=== PATIENT | female | born 1975 | race Caucasian/White ===

== ENCOUNTER 2016-04-12 15:04 | Emergency (ER) | payer OTHER ==
--- NOTE | 2016-04-12 18:20 | DIAGNOSTIC IMAGING REPORT ---
PROCEDURE: CT ABD/PELVIS WITH CONTRAST INDICATION: Left abdominal pain. History of uterine and cervical carcinoma. Hysterectomy. TECHNIQUE: 90 ml of Isovue 300 were injected intravenously and axial images were obtained of the entire abdomen and pelvis with sagittal and coronal reformations. COMPARISON: None. FINDINGS: ABDOMEN: Gallbladder, liver, spleen, pancreas, kidneys, and aorta are normal. Bowel pattern is normal. Appendix is not clearly identified, but no evidence of inflammatory process of. including appendix. PELVIS: Status post hysterectomy. Ovaries are not identified (oophorectomy versus atrophy). No evidence of mass or adenopathy. No evidence of free fluid. IMPRESSION: 1. Status post hysterectomy. 2. Otherwise negative CT abdomen pelvis. 3. Findings discussed with CARLIN Dias. All CT scans at this facility use dose modulation, iterative reconstruction, and/or weight-based dosing when appropriate to reduce radiation dose to as low as reasonably achievable.
--- NOTE | 2016-04-12 18:23 | ED ORDER SUMMARY ---
..... Patient: PILI MAYBERRY OrderSheet [facility] VisitID: [id number] [address] [place] [address] 40y, F Registration Date/Time: 04/12/2016 ORDER SHEET Weight: 56.2 kg (stated) Allergies: Penicillin GENERAL ORDERS: CT Abd/Pel w Cont (No) (pending) Urgent (15:57 04/12/2016 HBivens A.R.N.P.) (Ack 15:59 LMuller) (16:51 LWhalen R.N.) CBC w Diff Urgent (15:57 04/12/2016 HBivens A.R.N.P.) (Ack 15:59 LMuller) (16:51 LWhalen R.N.) CMP Urgent (15:57 04/12/2016 HBivens A.R.N.P.) (Ack 15:59 LMuller) (16:51 LWhalen R.N.) UA-Culture if indicated Urgent (15:57 04/12/2016 HBivens A.R.N.P.) (Ack 15:59 LMuller) (16:51 LWhalen R.N.) Amylase Urgent (15:57 04/12/2016 HBivens A.R.N.P.) (Ack 15:59 LMuller) (16:51 LWhalen R.N.) Lipase Urgent (15:57 04/12/2016 HBivens A.R.N.P.) (Ack 15:59 LMuller) (16:51 LWhalen R.N.) Wet Prep (Vaginal) (vagina) Urgent (15:58 04/12/2016 HBivens A.R.N.P.) (Ack 16:00 LMuller) (16:51 LWhalen R.N.) MEDICATION ORDERS: IV FLUIDS: IV Saline Lock (15:57 04/12/2016 HBivens A.R.N.P.) (16:51 LWhalen R.N.) Toradol IV 30 mg (NOW) (18:03 04/12/2016 HBivens A.R.N.P.) (18:05 LWhalen R.N.) ORDER SHEET NOTES: [Electronically signed by Rupesh Sow R.N. (19:00 04/12/2016)] [Electronically signed by Andria Sanchez (19:15 04/12/2016)] [Electronically locked/signed by Rupesh Sow R.N. (19:00 04/12/2016)]
--- NOTE | 2016-04-12 18:23 | ED ORDER SUMMARY ---
..... Patient: PILI MAYBERRY OrderSheet [facility] VisitID: [id number] [address] [place] [address] 40y, F Registration Date/Time: 04/12/2016 ORDER SHEET Weight: 56.2 kg (stated) Allergies: Penicillin GENERAL ORDERS: CT Abd/Pel w Cont (No) (pending) Urgent (15:57 04/12/2016 HBivens A.R.N.P.) (Ack 15:59 LMuller) (16:51 LWhalen R.N.) CBC w Diff Urgent (15:57 04/12/2016 HBivens A.R.N.P.) (Ack 15:59 LMuller) (16:51 LWhalen R.N.) CMP Urgent (15:57 04/12/2016 HBivens A.R.N.P.) (Ack 15:59 LMuller) (16:51 LWhalen R.N.) UA-Culture if indicated Urgent (15:57 04/12/2016 HBivens A.R.N.P.) (Ack 15:59 LMuller) (16:51 LWhalen R.N.) Amylase Urgent (15:57 04/12/2016 HBivens A.R.N.P.) (Ack 15:59 LMuller) (16:51 LWhalen R.N.) Lipase Urgent (15:57 04/12/2016 HBivens A.R.N.P.) (Ack 15:59 LMuller) (16:51 LWhalen R.N.) Wet Prep (Vaginal) (vagina) Urgent (15:58 04/12/2016 HBivens A.R.N.P.) (Ack 16:00 LMuller) (16:51 LWhalen R.N.) MEDICATION ORDERS: IV FLUIDS: IV Saline Lock (15:57 04/12/2016 HBivens A.R.N.P.) (16:51 LWhalen R.N.) Toradol IV 30 mg (NOW) (18:03 04/12/2016 HBivens A.R.N.P.) (18:05 LWhalen R.N.) ORDER SHEET NOTES: [Electronically signed by Rupesh Sow R.N. (19:00 04/12/2016)] [Electronically signed by Andria Sanchez (19:15 04/12/2016)] [Electronically locked/signed by Rupesh Sow R.N. (19:00 04/12/2016)]
--- NOTE | 2016-04-12 18:23 | ED CLINICAL REPORT ---
Clinical Report - Physicians/Mid Levels [facility] [address] [place] [address] 04/12/2016 15:06 Patient: PILI MAYBERRY Time Seen: 15:12; upon arrival, initial patient contact, initial documentation, patient care assumed. Arrived- By private vehicle. Historian- patient. HISTORY OF PRESENT ILLNESS Chief Complaint: PELVIC PAIN. At its maximum, severity described as severe. When seen in the E.D., severity described as mild. Modifying factors. Not worsened by anything. Not relieved by anything. It is described as "pain". No radiation. It is described as located in the right pelvis and left pelvis and in the pelvic area. This started years ago and is still present. It was abrupt in onset and has been intermittent. No nausea, loss of appetite, vomiting or diarrhea. No additional abdominal pain. (comes on random, last different durations and then goes away, started a few years ago, got worse over this past year and worse over the last week, has not been back to dr since her hysterectomy from uterine and cervical ca). No recent travel. Similar symptoms previously: None. Recent medical care: Not recently seen/assessed. REVIEW OF SYSTEMS No constipation, black stools, hematemesis, difficulty with urination or pain with urination. No urinary frequency, abnormal bleeding, bloody stools, fever or chest pain. No difficulty breathing. Denies current . All systems otherwise negative, except as recorded above. PAST HISTORY See nurses notes. PROBLEMS: Abdominal Pain. Cancer. Fibromyalgia. LNMP - Last Normal Menstrual Period. --15:27 Rupesh Sow R.N. ADDITIONAL SURGERIES: Hysterectomy. --15:27 Rupesh Sow R.N. SOCIAL HISTORY Light tobacco smoker. Regular alcohol use; consumes beer. History of occasional drug use: marijuana. No recent travel. Is a local resident. FAMILY HISTORY Negative. ADDITIONAL NOTES The nursing notes have been reviewed with agreement regarding the chief complaint, HPI, ROS, PMH and patient medications and allergies. PHYSICAL EXAM Vital Signs: 04/12/2016 15:24 BP: 131/79. HR: 67. RR: 18. O2 saturation: 100%. Temp: 98.5 F. Have been reviewed as normal and appear to be correct. Appearance: Alert. Oriented X3. No acute distress. Eyes: Pupils equal, round and reactive to light. Eyes normal inspection. Neck: Normal inspection. Neck supple. CVS: Normal heart rate and rhythm. Heart sounds normal. Pulses normal. Respiratory: No respiratory distress. Breath sounds normal. Chest nontender. Abdomen: Soft. Tenderness in the right lower quadrant and left lower quadrant. No guarding, rebound tenderness or Kauffman's, obturator or psoas sign present. Bowel sounds normal. No organomegaly. No mass. Tenderness present. Back: Normal inspection. : Normal external exam. Speculum exam abnormal. A moderate amount of thick, curd-like and white vaginal discharge present. No vaginal bleeding. Bimanual exam abnormal. Mild right adnexal tenderness with fullness; left adnexal tenderness. No uterine tenderness. No cervical motion tenderness. Uterus not enlarged. Skin: Skin warm and dry. Normal skin color. No rash. Normal skin turgor. Extremities: Extremities exhibit normal ROM. No lower extremity edema. Neuro: Oriented X 3. No motor deficit. No sensory deficit. LABS, X-RAYS, AND EKG Abdominal CT: No acute disease. The study was interpreted by the radiologist and discussed with the radiologist. Interpretation time: 18:18. Laboratory Tests: UA-Culture if indicated: (DAPHNIE: 04/12/2016 16:40) ( MsgRcvd 04/12/2016 17:07) Final results Test Result Flag Units (Reference) URINE COLOR YELLOW URINE APPEARANCE CLEAR URINE GLUCOSE NEGATIVE (NEGATIVE) URINE BILIRUBIN NEGATIVE (NEGATIVE) URINE KETONE TRACE (NEGATIVE) URINE SPECIFIC GRAVITY 1.015 (1.010-1.030) URINE PH 6.5 (5.0-8.0) URINE PROTEIN NEGATIVE (NEGATIVE) URINE UROBILINOGEN 0.2 EU/dL (0.2-1.0) URINE NITRITE NEGATIVE (NEGATIVE) URINE BLOOD NEGATIVE (NEGATIVE) URINE LEUK ESTERASE NEGATIVE (NEGATIVE) URINE RBC 0-1 rbc/hpf (0-1) URINE WBC 3-5 wbc/hpf (0-1) URINE EPITHELIAL CELLS 3-5 EPI/hpf (0-5) URINE BACTERIA FEW (1+) (NONE SEEN) URINE COMMENT CULT NOT INDICATED YEAST 3+URINE CULTURES ARE SET-UP BASED ON THE FOLLOWING CRITERIA:POSITIVE NITRITEPOSITIVE LEUKOCYTE ESTERASEGREATER THAN 10 WHITE BLOOD CELLSMODERATE (2+) OR GREATER BACTERIA CBC w Diff: (DAPHNIE: 04/12/2016 16:40) ( [facility] 16[facility]59) Final results Test Result Flag Units (Reference) WHITE BLOOD COUNT 7.4 K/uL (4.5-11.5) RED BLOOD COUNT 4.76 M/uL (4.00-5.20) HEMOGLOBIN 14.1 gm/dL (12.0-16.0) HEMATOCRIT 41.9 % (36.0-46.0) MEAN CELL VOLUME 88 fL (80-100) MEAN CORPUSCULAR HGB 30 pg (26-34) MEAN CORPUSCULAR HGB CONC 34 g/dL (31-37) RED CELL DISTRIBUTION WIDTH 12.8 % (11.6-14.8) PLATELET COUNT 157 K/uL (150-400) NEUTROPHIL % 55.3 % (50-75) LYMPH % 35.3 % (25-40) MONO % 5.9 % (3-14) EOSINOPHIL % 2.2 % (0-4) BASOPHIL % 1.3 % (0-2) CMP: (DAPHNIE: 04/12/2016 16:40) ( [facility] 04/12/2016 17:11) Final results Test Result Flag Units (Reference) GLUCOSE 82 mg/dL (70-110) BUN 16 mg/dL (7-18) CREATININE 0.8 mg/dL (0.6-1.3) Estimated GFR >60 mL/min Estimated GFR- >60 mL/min Note: Persistent reduction over 3 months in eGFR<60 mL/min/1.73 m2 defines CKD. Patients with eGFR values>=60 mL/min/1.73 m2 may also have CKD if evidence ofpersistent proteinuria. Additional information may be foundat www.kidney.org. SODIUM 143 mmol/L (136-145) POTASSIUM 4.1 mmol/L (3.5-5.1) CHLORIDE 106 mmol/L (98-107) CARBON DIOXIDE 24 mmol/L (21-32) CALCIUM 9.1 mg/dL (8.5-10.1) TOTAL PROTEIN 7.6 g/dL (6.4-8.2) ALBUMIN 4.2 g/dL (3.3-5.0) BILIRUBIN, TOTAL 0.4 mg/dL (0.0-1.0) ALKALINE PHOSPHATASE 67 U/L (46-116) AST (SGOT) 19 U/L (15-37) ALT (SGPT) 21 U/L (12-78) LIPASE 164 U/L (73-393) AMYLASE 77 U/L (25-115) Wet Prep: (DAPHNIE: 04/12/2016 16:40) ( MsgRcvd 04/12/2016 16:59) Final results SPECIMEN DESCRIPTION: VAGINA Test Result Flag Units (Reference) WET MOUNT CLUE CELLS:: NONE EPITHELIAL CELLS: MANY -- SOURCE?: VAGINAL WHITE BLOOD CELLS: RARE TRICHOMONAS:: NONE -- YEAST:: MODERATE * . PROGRESS AND PROCEDURES Patient counseled in person regarding the patient's stable condition, test results and diagnosis. 18:18. Differential Diagnosis: I considered acute appendicitis, mesenteric lymphadenitis, diverticulitis, colon cancer, adhesions, hernia, urinary tract infection, Mittelschmerz syndrome and cancer as a possible cause of abdominal pain in this patient. This is a partial list of diagnoses considered. Above considerations are based on history, physical exam, laboratory data and other information. Differential diagnosis was discussed with patient and patient's spouse. Disposition: Discharged home in good and improved condition (18:23). Condition: good and stable. CLINICAL IMPRESSION Chronic right lower quadrant and left lower quadrant abdominal pain of unknown cause. Acute moderate joey vaginitis INSTRUCTIONS Warnings: GENERAL WARNINGS: Return or contact your physician immediately if your condition worsens or changes unexpectedly, if not improving as expected, or if other problems arise. SPECIFICALLY, return if you develop pain in the abdomen or pelvis, fever, the inability to keep fluids down, blood in vomitus, blood in diarrhea, fainting or lightheadedness. Prescription Medications: Diflucan 150 mg tablet: take 1 tablet orally today. No refills. Substitution is permissible. Follow-up: Follow up with your doctor in two days even if well. Call for an appointment. Summary of care provided to patient. Understanding of the discharge instructions verbalized by patient. (Electronically signed by Andria Sanchez A.R.N.P. 04/12/2016 19:15)
--- NOTE | 2016-04-12 18:23 | ED NURSING NOTES ---
Clinical Report - Nurses [facility] [address] [place] [address] 04/12/2016 15:06 Patient: PILI MAYBERRY TRIAGE Triage time 15:24 Apr 12 2016. Acuity: LEVEL 3. Chief Complaint: PELVIC PAIN and FREQUENCY. NEIDA COMA SCORE: Neida Coma Scale: 15- eyes open spontaneously (4); best verbal response- oriented x 4 (5); best motor response- obeys commands (6). --15:30 Rupesh Sow R.N. 15:24 04/12/16. BP: 131/79. HR: 67. RR: 18. O2 saturation: 100%. Temp: 98.5 F. Pain level now 8/10. --15:30 Rupesh Sow R.N. Weight: 56.2 kg stated. Height/Length: 61 inches Per Patient. BMI: 23.4. --15:29 Rupesh Sow R.N. Medications None. --19:00 Rupesh Sow R.N. Allergies Penicillin. --15:27 Rupesh Sow R.N. History Arrived by private vehicle. Historian: patient. Accompanied by family. Primary physician (). ( Left sided pelvic pain has been going on for months but today the pain is constant and is not going away. Patient states can't tolerate the constant pain.). She has had abdominal pain. No spotting, hematuria, abnormal bleeding, flank pain or fever. Last oral intake by patient was breakfast. Treatment [employer]: Took Tylenol. PAST MEDICAL HX: No history of diabetes mellitus or hypertension. No history of pelvic inflammatory disease, endometriosis or sexually transmitted disease. Immunizations: up-to-date. ( hysterectomy February 2010 has ovaries still in.). SOCIAL HX: Current every day light tobacco smoker (cigarette)- less than 1/2 a pack per day. Occasional alcohol use; consumes three beers a week. History of occasional drug use: marijuana. SELF HARM ASSESSMENT: A self harm assessment was performed. The patient answered "no" to the question "Have you recently felt down, depressed, or hopeless?" and "Do you have thoughts of harming or killing yourself?". FALL RISK ASSESSMENT: Fall risk assessment completed. No fall risk identified. NUTRITIONAL RISK ASSESSMENT: The nutritional risk assessment revealed no deficiencies. FUNCTIONAL ASSESSMENT: Functional assessment: no impairments noted. LEARNING NEEDS ASSESSMENT: The learning needs assessment revealed no barriers. ABUSE ASSESSMENT: Abuse assessment: (yes) The patient was asked "Do you feel safe in your home?". SKIN INTEGRITY ASSESSMENT: Skin integrity risk assessment completed. No skin integrity risk identified. --15:30 Rupesh Sow R.N. PROBLEMS: Abdominal Pain. Cancer. Fibromyalgia. LNMP - Last Normal Menstrual Period. --15: Rupesh Sow R.N. ADDITIONAL SURGERIES: Hysterectomy. --15:27 Rupesh Sow R.N. Interventions ID and allergy band on patient. --15:30 Rupesh Sow R.N. PHYSICAL ASSESSMENT Ambulatory to room. GENERAL / NEURO / PSYCH: Alert. Oriented X 4. Appears in pain. HEENT: Mucous membranes are pink. RESPIRATORY: Respirations not labored. Breath sounds within normal limits. CVS: Normal heart rate and rhythm. Capillary refill less than 2 seconds. GI / : Guarding present. Bowel sounds within normal limits. Normal bowel sounds. No abdominal distention or rebound tenderness. No emesis noted. She has had frequency of urination. Urgency of urination. No CVA tenderness, pain with urination or hematuria noted. Patient is not incontinent of urine. No Estrella catheter. No vaginal bleeding. No vaginal discharge. No genital lesions noted. ( Last BM this am and normal.). SKIN: Skin is warm and dry. --15:31 Rupesh Sow R.N. NURSING PROGRESS NOTES The initial plan of care for this patient includes an assessment with efforts to address hydration needs. Pulse oximeter and NIBP monitor placed on patient. Patient gowned. Head of bed elevated (45). Reassurance given. Call light placed in reach. Side rails up x 1. Bed placed in lowest position. Brakes of bed on. --15:31 Rupesh Sow R.N. 16:51 04/12/2016 Site #1 started via IV in the left antecubital space with an 20g angiocath, with aseptic technique and good blood return; two attempts. Blood drawn: rainbow set. Labeled in the presence of the patient and sent to the lab. Saline lock flushed with 10 mL saline. --16:51 Rupesh Sow R.N. Checked patient name and birthdate: patient confirmed. Instructions provided to collect clean catch urine and patient verbalized understanding. Clean catch urine collected with return of yellow-colored urine; sample sent to lab for urinalysis and culture. --16:52 Rupesh Sow R.N. 18:00 04/12/16. BP: 136/80. HR: 68. RR: 18. O2 saturation: 97%. Temp: 98.4 F. Pain level now 7/10. --18:01 Rupesh Sow R.N. 18:05 04/12/2016 Toradol IVP 30 mg given over 2 minute(s) via site #1. Allergies verified and confirmed 5 rights. IV patency established. IV site checked: no pain, redness, or swelling. IV flushed thoroughly pre- and post-medication administration. --18:05 Rupesh Sow R.N. DISPOSITION / DISCHARGE 18:40 04/12/2016 Site #1 removed upon discharge. Catheter intact. Pressure dressing applied. --18:59 Rupesh Sow R.N. Departure time: 18:50 Apr 12 2016. Condition at departure: improved. No learning barriers present. Discharge instructions provided and reviewed with the patient and spouse. Reviewed warnings. Reviewed medication(s). Treatments reviewed. Reviewed referrals. Patient verbalized understanding. Written instructions provided in Kyrgyz. The patient was discharged home and accompanied by spouse. She left the Emergency Department ambulatory and via private vehicle. Spouse driving. --18:59 Rupesh Sow R.N. 18:00 04/12/16. BP: 136/80. HR: 68. RR: 18. O2 saturation: 97%. Temp: 98.4 F. Pain level now 7/10. --18:59 Rupesh Sow R.N. Locked/Released at 04/12/2016 19:00 by Rupesh Sow R.N.
--- NOTE | 2016-04-12 19:15 | ED DISCHARGE INSTRUCTIONS ---
Patient: PILI MAYBERRY General Instructions [facility] VisitID: [id number] [address] [place] [address] 40y, F Registration Date/Time: 04/12/2016 Chronic right lower quadrant and left lower quadrant abdominal pain of unknown cause. Acute moderate joey vaginitis INSTRUCTIONS Warnings: GENERAL WARNINGS: Return or contact your physician immediately if your condition worsens or changes unexpectedly, if not improving as expected, or if other problems arise. SPECIFICALLY, return if you develop pain in the abdomen or pelvis, fever, the inability to keep fluids down, blood in vomitus, blood in diarrhea, fainting or lightheadedness. Prescription Medications: Diflucan 150 mg tablet: take 1 tablet orally today. No refills. Substitution is permissible. Follow-up: Follow up with your doctor in two days even if well. Call for an appointment. Summary of care provided to patient. Understanding of the discharge instructions verbalized by patient. ADDITIONAL INFORMATION Abdominal Pain, Unknown Cause (Female) The exact cause of your abdominal (stomach) pain is not certain. This does not mean that this is something to worry about, or the right tests were not done. Everyone likes to know the exact cause of the problem, but sometimes with abdominal pain, there is no clear-cut cause, and this could be a good thing. The good news is that your symptoms can be treated, and you will feel better. Your condition does not seem serious now; however, sometimes the signs of a serious problem may take more time to appear. For this reason,it is important for you to watch for any new symptoms, problems,or worsening of your condition. Over the next few days, the abdominal pain may come and go, or be continuous. Other common symptoms can include nausea and vomiting. Sometimes it can be difficult to tell if you feel nauseous, you may just feel bad and not associate that feeling with nausea. Constipation, diarrhea, and a fever may go along with the pain. The pain may continue even if treated correctly over the following days. Depending on how things go, sometimes the cause can become clear and may require further or different treatment. Additional evaluations, medications, or tests may be needed. Home care Your health care provider may prescribe medications for pain, symptoms, or an infection. Follow the health care provider's instructions for taking these medications. General care Rest until your next exam. No strenuous activities. Try to find positions that ease discomfort. A small pillow placed on the abdomen may help relieve pain. Something warm on your abdomen (such as a heating pad) may help, but be careful not to burn yourself. Diet Do not force yourself to eat, especially if having cramps, vomiting, or diarrhea. Water is important so you do not get dehydrated. Soup may also be good. Sports drinks may also help, especially if they are not too acidic. Make sure you don't drink sugary drinks as this can make things worse. Take liquids in small amounts. Do not guzzle them. Caffeine sometimes makes the pain and cramping worse. Avoid dairy products if you have vomiting or diarrhea. Don't eat large amounts at a time. Wait a few minutes between bites. Eat a diet low in fiber (called a low-residue diet). Foods allowed include refined breads, white rice, fruit and vegetable juices without pulp, tender meats. These foods will pass more easily through the intestine. Avoid whole-grain foods, whole fruits and vegetables, meats, seeds and nuts, fried or fatty foods, dairy, alcohol and spicy foods until your symptoms go away. Follow-up care Follow up with your health care provider as instructed, or if your pain does not begin to improve in the next 24 hours. When to seek medical care Seek prompt medical care if any of the following occur: Pain gets worse or moves to the right lower abdomen New or worsening vomiting or diarrhea Swelling of the abdomen Unable to pass stool for more than three days Fever of 100.4F (38C) or higher, or as directed by your healthcare provider. Blood in vomit or bowel movements (dark red or black color) Jaundice (yellow color of eyes and skin) Weakness, dizziness Chest, arm, back, neck or jaw pain Unexpected vaginal bleeding or missed period Call 911 Call emergency services if any of the following occur: Trouble breathing Confusion Fainting or loss of consciousness Rapid heart rate Seizure Abdominal Pain,Possible Appendicitis [Repeat Exam, Female] Based on your visit today, the exact cause of your abdominal (stomach) pain is not certain. However, you do have some of the early signs of APPENDICITIS. Early in an appendix infection the symptoms can be similar to a simple "stomach ache" or "stomach flu". Therefore, the diagnosis can be hard to make. Since an appendix infection is a serious condition, it is important to know if this is the cause of your symptoms. WAITING for more time to pass and repeating the exam is the best way to find out whether you have appendicitis. Within the next 12-24 hours the cause of your stomach pain should become clear. It is important for you to watch for any new symptoms or worsening of your condition. (See below). Home Care: Rest until your next exam. No strenuous activities. Eat a diet low in fiber (called a low-residue diet). Foods allowed include refined breads, white rice, fruit and vegetable juices without pulp, tender meats. These foods will pass more easily through the intestine. Avoid whole-grain foods, whole fruits and vegetables, meats, seeds and nuts, fried or fatty foods, dairy, alcohol and spicy foods until your symptoms go away. In some cases, you may be asked not to eat or drink anything until you are re-examined. Return for another exam exactly as directed. Follow Up with your doctor or this facility as directed. Get Prompt Medical Attention if any of the following occur: Pain gets worse or moves to the right lower abdomen New or worsening vomiting or diarrhea Swelling of the abdomen Unable to pass stool for more than three days Fever of 100.4F (38C) or higher, or as directed by your healthcare provider Blood in vomit or bowel movements (dark red or black color) Weakness, dizziness or fainting Unexpected vaginal bleeding Joey Vaginal Infection Joey is an overgrowth of the yeast germs that are normally present in the vagina. The symptoms are itching and redness of the outer vaginal area and whitish discharge. You may also have a burning sensation when you pass urine. This is due to the urine contacting the inflamed outer vaginal tissues. This infection occurs when there is an imbalance in the natural fluids of the vagina. It may occur during , or when taking control pills or antibiotics. Other risk factors include diabetes, wearing tight underwear and douching too often. Home Care: Keep the genital area clean and free of discharge by wearing an absorbent sanitary pad. Change the pad often. Shower daily, cleaning the outer vaginal area with plain soap and water. Do not douche during treatment unless advised to do so by your doctor. Routine douching after treatment is no longer recommended to clean the vagina. It raises your risk of vaginal infection and pelvic inflammatory disease. Dont have sex until you have finished the medicine and all of your symptoms have gone away. Wear cotton underwear or cotton-lined panty hose. Dont wear pants that are too tight. Take all medicine as directed until it is gone. If you dont do this, symptoms might come back. Follow Up: Return to this facility or see your doctor if ALL symptoms have not cleared after treatment is complete. Get Prompt Medical Attention if any of the following occur: Fever of 100.4F (38C) or higher, or as directed by your healthcare provider Lower abdominal pain Rash or joint pain Painful sores around the outer vaginal area or on your partners penis Fluconazole Oral tablet What is this medicine? FLUCONAZOLE (floo TORIE na zole) is an antifungal medicine. It is used to treat certain kinds of fungal or yeast infections. How should I use this medicine? Take this medicine by mouth. Follow the directions on the prescription label. Do not take your medicine more often than directed. Talk to your liquor maker regarding the use of this medicine in children. Special care may be needed. This medicine has been used in children as young as 6 months of age. What side effects may I notice from receiving this medicine? Side effects that you should report to your doctor or health progressive care manager as soon as possible: allergic reactions like skin rash or itching, hives, swelling of the lips, mouth, tongue, or throat dark urine feeling dizzy or faint irregular heartbeat or chest pain redness, blistering, peeling or loosening of the skin, including inside the mouth trouble breathing unusual bruising or bleeding vomiting yellowing of the eyes or skin Side effects that usually do not require medical attention (report to your doctor or health progressive care manager if they continue or are bothersome): changes in how food tastes diarrhea headache stomach upset or nausea What may interact with this medicine? Do not take this medicine with any of the following medications: cisapride pimozide red yeast rice This medicine may also interact with the following medications: control pills cyclosporine diuretics like hydrochlorothiazide medicines for diabetes that are taken by mouth medicines for high cholesterol like atorvastatin, lovastatin or simvastatin phenytoin ramelteon rifabutin rifampin some medicines for anxiety or sleep tacrolimus terfenadine theophylline tofacitinib warfarin What if I miss a dose? If you miss a dose, take it as soon as you can. If it is almost time for your next dose, take only that dose. Do not take double or extra doses. Where should I keep my medicine? Keep out of the reach of children. Store at room temperature below 30 degrees C (86 degrees F). Throw away any medicine after the expiration date. What should I tell my health care provider before I take this medicine? They need to know if you have any of these conditions: electrolyte abnormalities history of irregular heart beat kidney disease an unusual or allergic reaction to fluconazole, other azole antifungals, medicines, foods, dyes, or preservatives or trying to get breast-feeding What should I watch for while using this medicine? Visit your doctor or health progressive care manager for regular checkups. If you are taking this medicine for a long time you may need blood work. Tell your doctor if your symptoms do not improve. Some fungal infections need many weeks or months of treatment to cure. Alcohol can increase possible damage to your liver. Avoid alcoholic drinks. If you have a vaginal infection, do not have sex until you have finished your treatment. You can wear a sanitary napkin. Do not use tampons. Wear freshly washed cotton, not synthetic, panties. You have been given the following additional information: Abdominal Pain, Unknown Cause, (Female) Abdominal Pain, Possible Appendicitis (Female) Vaginitis, Joey Fluconazole Oral tablet (Electronically signed by Andria Sanchez A.R.N.P. 04/12/2016 19:15)
--- NOTE | 2016-04-12 19:15 | ED MED RECONCILIATION SUMMARY ---
Patient: PILI MAYBERRY Medication Reconciliation Report [facility] VisitID: [id number] [address] [place] [address] 40y, F Registration Date/Time: 04/12/2016 Weight: 56.2 kg Height/Length: 61 in. BMI: 23.4 ALLERGIES: Penicillin The patient's Home Medications are listed below: NONE. The source(s) of the original Home Medication information: Not obtained. The following Medications were given to the patient in the Emergency Department: Toradol [IVP] IVP 30 mg, administered: 04/12/2016 6:05:00 PM The following Medications were prescribed to the patient: Diflucan 150 mg tablet: take 1 tablet orally today. No refills. Substitution is permissible. -- Andria Sanchez A.R.N.P.
--- NOTE | 2016-04-12 19:15 | ED MAR SUMMARY ---
..... Medication Administration Record [facility] [address] [place] [address] Patient: PILI MAYBERRY Visit ID: [id number] 40y, F Weight: 56.2 kg Height/Length: 61 in BMI: 23.4 ALLERGIES: Penicillin Given 18:05 04/12/2016 Rupesh Sow R.N. Medication Administered: TORADOL [IVP], Dose: 30 mg IVP over 2 minute(s), Site: #1 left AC. Medication Ordered: Toradol IV 30 mg (NOW).
--- NOTE | 2016-04-12 19:15 | ED MED RECONCILIATION SUMMARY ---
Patient: PILI MAYBERRY Medication Reconciliation Report [facility] VisitID: [id number] [address] [place] [address] 40y, F Registration Date/Time: 04/12/2016 Weight: 56.2 kg Height/Length: 61 in. BMI: 23.4 ALLERGIES: Penicillin The patient's Home Medications are listed below: NONE. The source(s) of the original Home Medication information: Not obtained. The following Medications were given to the patient in the Emergency Department: Toradol [IVP] IVP 30 mg, administered: 04/12/2016 6:05:00 PM The following Medications were prescribed to the patient: Diflucan 150 mg tablet: take 1 tablet orally today. No refills. Substitution is permissible. -- Andria Sanchez A.R.N.P.
--- NOTE | 2016-04-12 19:15 | ED MAR SUMMARY ---
..... Medication Administration Record [facility] [address] [place] [address] Patient: PILI MAYBERRY Visit ID: [id number] 40y, F Weight: 56.2 kg Height/Length: 61 in BMI: 23.4 ALLERGIES: Penicillin Given 18:05 04/12/2016 Rupesh Sow R.N. Medication Administered: TORADOL [IVP], Dose: 30 mg IVP over 2 minute(s), Site: #1 left AC. Medication Ordered: Toradol IV 30 mg (NOW).
== END 2016-04-12 18:50 | disposition home or self-care (01) ==
LOC: ED SRH 15:04
DX: B37.3 Candidiasis of vulva and vagina (principal); R10.32 Left lower quadrant pain; R10.31 Right lower quadrant pain; G89.29 Other chronic pain; F17.210 Nicotine dependence, cigarettes, uncomplicated
CPT/HCPCS: 90004; 90100; 90195; 92235; 92530; 95059